=== PATIENT | female | born 1950 | race Caucasian/White ===

== ENCOUNTER → 2016-08-14 | Day surgery (SDC) | payer BC ==
[~2016-08-14] MED LIST: ASTHMANEX; BUPIVACAINE/EPINEPHRINE 0.5% PF 30 ML VIAL ONE; LACTATED RINGER'S 1000 ML INJ 1,000 ML ONE; LORT7.5T3 PO; MIDAZOLAM HCL 2 MG/2 ML VIAL ONE; ONDANSETRON HCL 4 MG/2 ML VIAL IV PUSH ONE; PROPOFOL 200 MG/20 ML AMP IV ONE; SODIUM CHLOR 0.9% 250 ML INJ 250 ML IV ONE; SYNT88TA PO; VANCOMYCIN HCL 1000 MG VIAL ONE
--- NOTE | 2016-08-14 11:04 | TN ---
cc: CHONG GOMEZ M.D. DATE OF SURGERY: 08/14/2016 PREOPERATIVE DIAGNOSIS ADH (atypical ductal hyperplasia), left breast. POSTOPERATIVE DIAGNOSIS ADH (atypical ductal hyperplasia), left breast. PROCEDURE PERFORMED Needle-localized left breast biopsy. SURGEON Chong Gomez INTEGRATION ENGINEER Facundo Ness, MS III. ANESTHESIA General LMA. COMPLICATIONS None. INDICATION FOR PROCEDURE Ms. Aguirre is a pleasant 65-year-old female who was noted to have a mammographic abnormality in her left breast. She underwent stereotactic biopsy and this was found to be atypical ductal hyperplasia. She was referred for definitive surgical excision of the area. Risks and benefits of needle-localized left breast biopsy was discussed with her and her family and they were agreeable. DETAILS OF PROCEDURE The patient was identified, brought to the operating room and placed supine on the operating table. After adequate general anesthesia was achieved with LMA the left breast was prepped and draped in standard surgical fashion. 0.25% Marcaine was injected in the skin and subcutaneous tissue in the periareolar position. A periareolar incision was made from about 12 o'clock to 3 o'clock. Subcutaneous tissue was dissected with electrocautery Bovie. Dissection then proceeded down into the breast itself. Using generous margins in all directions the breast tissue was excised completely around the wire all the way to its base. This was accomplished using electrocautery Bovie. The wire was then transected and the specimen was excised. The specimen was inspected and found to have generous margins in all directions all the way to the base of the wire. It was labeled with a short stitch superior, a long stitch lateral and then sent to radiology. Dr. Davis called back from radiology stating the specimen contained the clip in the area of concern. The specimen was then sent to pathology. The wound was then copiously irrigated with normal saline solution. The wound was injected with additional local anesthetic and then closed in two layers using 3-0 and 4-0 Vicryl. Sterile dressings were applied and the patient was awakened and brought to Recovery in stable condition. MD CLAY Roe/DEVEN /10:09 AM /10:50 AM
== END | disposition home or self-care (01) ==
LOC: ESDC 06:51
PROVIDERS: ATTEND Surgery Trauma Surgery
DX: N60.92 Unspecified benign mammary dysplasia of left breast (principal)
CPT/HCPCS: 00400; 19125; 88307; J2250; J2405; J3010; J3370; J7050; J7120